=== PATIENT | male | born 1985 | race Caucasian/White ===

== ENCOUNTER 2017-05-26 10:56 | Emergency (ER) | payer OTHER ==
--- NOTE | 2017-05-26 11:23 | ED Physician Chart ---
ED Chief Complaint/HPI - Patient Information Date Seen:: 05/26/17 Time Seen:: 11:22 Chief Complaint:: LEFT WRIST PAIN AFTER FALL LAST PM History of Present Illness:: THIS 31 YEAR OLD LEFT HANDED MALE WAS TAKING OUT TRASH LAST EVENING WHEN HE TRIPPED AND FELL DUE TO A MISPLACED SKATE BOARD. PATIENT RATE PAIN SEVERITY 9/10 EARLIER THIS AM WHEN HE GOT UP. HE TOOK A 800 MG IBUPROFEN AND NOW THE PAIN IS MARKEDLY REDUCED AND ABOUT 2/10 SEVERITY. PAIN IS MADE WORSE BY DORSIFLEXION AND MOVEMENT. NO ASSOCIATED WEAKNESS OR NUMBNESS IN WRIST OR HAND. NO OTHER INJURIES. 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.) Endocrine: No polyuria, No polydipsia Psychiatric: Prior psych history, No depression, Anxiety, No suicidal ideation Hematopoietic: No bruising, No lymphadenopathy Allergic/Immuno: No urticaria, No angioedema Neurological: No syncope, No focal symptoms, No weakness, No paresthesia, No headache, No seizure, No dizziness, No confusion, No vertigo ED Past Medical History - Past Medical History Social History: Non Smoker (patient uses medical marijuana for treatment of anxiety.), Employed (as a general foreman.) Family Medical History - Family Member Mother History Unknown: Yes ED Physical Exam - Physical Examination General/Constitutional: Awake, Well-developed, well-nourished, Alert, GCS 15, Non-toxic appearing, Ambulatory Head: Atraumatic Eyes: Lids, conjuctiva normal, PERRL, EOMI Skin: Nl inspection, No skin lesions, No ecchymosis, Well hydrated, No lymphadenopathy ENMT: External ears, nose nl, Lips, teeth, gums nl, Oropharynx nl Neck: Nontender, Full ROM w/o pain, No JVD, No nuchal rigidity, No bruit, No mass, No stridor Respiratory: Nl effort/Exclusion, Clear to Auscultation, No Wheeze/Rhonchi/Rales Cardio Vascular: RRR, No murmur, gallop, rubs, NL S1 S2 Other Cardio Vascular comments:: Good pulses in all 4 extremities. ED Labs/Radiology/EKG Results - Lab Results Results: 3 VIEWS OF THE LEFT WRIST: NO FRACTURES, NO DISLOCATIONS, NO SOFT TISSUE SWELLING, NO FOREIGN BODIES. IMPRESSION NO ACUTE TRAUMATIC FINDINGS. ED Assessment - Assessment General Assessment: CASE SUMMARY: This 31-year-old left-handed male sustained an injury to his left wrist when he tripped over a skateboard while taking out the trash last evening. He awoke this morning he had severe pain in the wrist which improved after he took 800 mg of ibuprofen. Physical examination there was no deformity or significant swelling of the left wrist. Range of motion was limited with dorsal flexion due to pain. 3 views of the wrist were obtained with no fractures, dislocation or soft tissue swelling. Patient was placed in a Velcro wrist splint and advised to continue intermittent icing and elevation. He was further advised to continue using ibuprofen for wrist pain. He was advised to return to the emergency department if his symptoms worsened and to follow-up with his primary care physician if there was any residual pain in 2-3 weeks. MDM DDX LEFT WRIST INJURY: NOT CLOSED FRACTURE BASED ON EXAM AND RADIOLOGY FINDINGS. NO DISLOCATIONS BASED ON RADIOLOGY FINDINGS. NO RADIO OPAQUE FOREIGN BODIES BASED ON RADIOLOGY FINDINGS. ED Septic Shock - . Is Septic Shock (SBP<90, OR Lactate>4 mmol\L) present?: No ED Reassessment (Disposition) - Reassessment Reassessment Condition:: Improved - Diagnosis Diagnosis:: SPRAIN LEFT WRIST. ANXIETY DISORDER Return to the emergency department if her symptoms worsen. Follow-up with your regular physician if the wrist isn't improving in 2-3 weeks. - Aftercare/Follow up Instructions Aftercare/Follow-Up Instructions:: Counseled pt & family regarding lab results/ diagnosis & need follow up - Patient Disposition Discharge/Transfer:: Home ED Discharge Plan - Patient Disposition Instructions: Wrist Pain, [id number] Additional Instructions: DISCHARGE: Patient given medication reconciliation form and D/C instructions. Patient verbalized understanding. MD discussed with patient the results and treatment provided. Ambulatory with steady gait for discharge to home. Patient in stable condition, ID band removed. Patient educated on pain management. All belongings sent with patient. Accepting Physician: Deon Morris [Courtesy] - Forms: Work Release Form
--- NOTE | 2017-05-27 09:43 | Diagnostic Imaging Report ---
Left wrist 3 views Indication: Fall Comparison: none Findings: Sclerotic density most of the physeal scars of the distal radius and ulna are noted. Otherwise no evidence of acute fracture or significant focal soft tissue swelling. No dislocation. Impression: Sclerotic densities most likely physeal scars of the distal radius and ulna are noted. No evidence of an acute fracture. In the setting of trauma, if clinical symptoms persist and there is continued concern for an occult fracture, follow up exams in 5-7 days is recommended.
== END 2017-05-26 12:40 | disposition home or self-care (01) ==
LOC: ER 10:56
DX: S63.502A Unspecified sprain of left wrist, initial encounter (principal); F41.9 Anxiety disorder, unspecified; Z88.0 Allergy status to penicillin; W01.0XXA Fall on same level from slipping, tripping and stumbling without subsequent striking against object, initial encounter; Y93.51 Activity, roller skating (inline) and skateboarding; Y92.89 Other specified places as the place of occurrence of the external cause; Y99.8 Other external cause status
CPT/HCPCS: 73110-TC-LT; Z7502

== ENCOUNTER 2017-09-07 11:23 | Emergency (ER) | payer OTHER ==
--- NOTE | 2017-09-07 12:07 | ED Physician Chart ---
ED Chief Complaint/HPI - Patient Information Date Seen:: 09/07/17 Time Seen:: 12:02 Chief Complaint:: Lest chest pain History of Present Illness:: 32 yo male had sudden onset of chest pain while watching TV last night with radiation to left shoulder for a minute. The pain became fluctuating and lasted until this morning. The patient had sense of SOB. He was able to pinpoint the tender point at the anterior left chest. Allergies:: Allergies Allergy/AdvReac Type Severity Reaction Status Date / Time Penicillins [PCN] Allergy Verified 05/26/17 11:23 Vitals:: Vital Signs - 8 hr 09/07/17 11:45 Temp 98.2 F HR 111 RR 22 BP 196/112 O2 Sat % 99 ED Past Medical History - Past Medical History Past Medical History: No significant medical hx Social History: Smoker, Alcohol, Illicit Drug Use (marijuana) Surgical History: other (right forearm ORIF) Family Medical History - Family Member Mother History Unknown: Yes Age: 63 Ethnicity: Non- Living Status: Still Living Hx Family Cancer: No Hx Family Coronary Artery Disease: No Hx Family Congestive Heart Failure: No Hx Family Hypertension: Yes Hx Family Stroke: No Hx Family Diabetes: No Hx Family Seizures: No Hx Family Dementia: No Hx Family AIDS: No Hx Family HIV: No Hx Family COPD: No Hx Family Hepatitis: No Hx Family Psychiatric Problems: No Hx Family Tuberculosis: No ED Septic Shock - <6hrs of presentation: Vital Signs: Vital Signs - 8 hr 09/07/17 11:45 Temp 98.2 F HR 111 RR 22 BP 196/112 O2 Sat % 99
[2017-09-07 12:24] LABS: % BASOPHILS 0.4 % (0.0-2.0); % EOSINOPHILS 0.8 % (0.0-5.0); % LYMPHOCYTES 23.7 % (20.0-50.0); % NEUTROPHILS 68.1 % (40.0-80.0); EOSINOPHILE ABSOLUTE 0.1 Th/cmm (0.1-0.4); HEMATOCRIT 48.7 % (41.0-60); HEMOGLOBIN 16.5 gm/dL (12-16); LYMPHOCYTE ABSOLUTE 1.6 Th/cmm (1.5-3.0); MEAN CELL VOLUME 95.3 fl (80-99); MEAN CORPUSCULAR HEMOGLOBIN 32.3 pg (26.0-30.0); MEAN CORPUSCULAR HGB CONC 33.9 pg (28.0-36.0); MEAN PLATELET VOLUME 8.7 fl; MONOCYTE ABSOLUTE 0.5 Th/cmm (0.3-1.0); NEUTROPHILE ABSOLUTE 4.6 Th/cmm (1.8-8.0); PLATELET COUNT 247 Th/cmm (150-400); RED BLOOD COUNT 5.11 Mil/cmm (4.30-5.70); WHITE BLOOD COUNT 6.8 Th/cmm (4.8-10.8)
--- NOTE | 2017-09-07 13:06 | Diagnostic Imaging Report ---
CHEST X-RAY: AP view INDICATION: Left-sided chest pain COMPARISON: None FINDINGS: There is no focal consolidation or pleural effusions The heart is normal in size. The osseous structures demonstrate no acute abnormalities. There may have been old trauma to the left clavicle. IMPRESSION: No focal acute pulmonary process.
[2017-09-07 13:09] LABS: ALB/GLOB RATIO 2.1 (1.0-1.8); ALBUMIN 4.8 gm/dL (4.2-5.5); ALKALINE PHOSPHATASE 47 U/L (34-104); ANION GAP 14.5 (7.0-16.0); BILIRUBIN,TOTAL 0.6 mg/dL (0.3-1.0); BUN - UREA NITROGEN 13 mg/dL (7-25); CALCIUM SERUM 9.7 mg/dL (8.6-10.3); CARBON DIOXIDE 22.9 mEq/L (21.0-31.0); CHLORIDE 102 mEq/L (98-107); CREATININE - SERUM 0.7 mg/dL (0.7-1.3); GFR AFRICAN-AMERICAN > 60.0 ml/min (>90); GFR NON AFRICAN-AMERICAN > 60.0 ml/min; GLUCOSE 110 mg/dL (70-105); POTASSIUM SERUM 3.4 mEq/L (3.5-5.1); SGOT 21 U/L (13-39); SGPT/ALT 17 U/L (7-52); SODIUM SERUM 136 mEq/L (136-145); TOTAL PROTEIN,SERUM 7.1 gm/dL (6.0-8.3)
[2017-09-07 13:10] LABS: CHOLESTEROL 271 mg/dL (<200); HDL -HIGH DENSITY LIPOPROTEIN 93 mg/dL (23-92); TRIGLYCERIDES 187 mg/dL (<150)
== END 2017-09-07 13:55 | disposition home or self-care (01) ==
LOC: ER 11:23
DX: R07.89 Other chest pain (principal); F17.200 Nicotine dependence, unspecified, uncomplicated; F12.10 Cannabis abuse, uncomplicated
CPT/HCPCS: 36415-UA; 71010-TC; 80053-TC; 80061-TC; 82550-TC; 83880-TC; 84443-TC; 84484-TC; 85025-TC; 93005

== ENCOUNTER 2018-08-23 08:29 | Emergency (ER) | payer SELFPAY ==
--- NOTE | 2018-08-23 09:11 | ED Physician Chart ---
ED Chief Complaint/HPI - Patient Information Date Seen:: 08/23/18 Time Seen:: 08:40 Chief Complaint:: Right Thigh Redness History of Present Illness:: onset x 3 days of right thigh redness, swelling, and erythema after an insect bite 3 days AIRPLANE PILOT CROP DUSTING; pt denies trauma, LOC, ALOC, AMS, H/As, S/T, neck pain, cough, C/P, SOB, Abd. Pain, A/N/V/D/C, weakness, dizziness, paresthesias, vertigo, bleeding, fever, chills, or urinary s/s; pt's last tetanus shot: < 5 years; UTD Allergies:: Allergies Allergy/AdvReac Type Severity Reaction Status Date / Time Penicillins [PCN] Allergy Verified 05/26/17 11:23 Vitals:: Vital Signs - 8 hr 08/23/18 08:39 Temp 98.8 F HR 107 RR 17 BP 130/83 O2 Sat % 96 Historian:: Patient Review:: Nurse's Note Reviewed ED Review of Systems - Review of Systems General/Constitutional: No fever, No chills, No weight loss, No weakness, No diaphoresis, No edema, No loss of appetite Skin: Skin lesions, No rash, No bruising Head: No headache, No light-headedness Eyes: No loss of vision, No pain, No diplopia ENT: No earache, No nasal drainage, No sore throat, No tinnitus Neck: No neck pain, No swelling, No thyromegaly, No stiffness, No mass noted Cardio Vascular: Chest pain, No palpitations, No PND, No orthopnea, No edema Pulmonary: No SOB, No cough, No sputum, No wheezing GI: No nausea, No vomiting, No diarrhea, No pain, No melena, No hematochezia, No constipation, No hematemesis G/U: No dysuria, No frequency, No hematuria, No nacturia Musculoskeletal: No bone or joint pain, No back pain, Muscle pain Endocrine: No polyuria, No polydipsia Psychiatric: No prior psych history, No depression, No anxiety, No suicidal ideation, No homicidal ideation, No auditory hallucination, No visual hallucination Hematopoietic: No bruising, No lymphadenopathy Allergic/Immuno: No urticaria, No angioedema Neurological: No syncope, No focal symptoms, No weakness, No paresthesia, No headache, No seizure, No dizziness, No confusion, No vertigo ED Past Medical History - Past Medical History Obtainable: Yes Past Medical History: No significant medical hx Family History: HTN Social History: Smoker, Alcohol, No Drug Use, Single Surgical History: None Psychiatricy History: None Medication: Reviewed Family Medical History - Family Member Mother History Unknown: Yes Ethnicity: Non- Living Status: Still Living Hx Family Cancer: No Hx Family Coronary Artery Disease: No Hx Family Congestive Heart Failure: No Hx Family Hypertension: Yes Hx Family Stroke: No Hx Family Diabetes: No Hx Family Seizures: No Hx Family Dementia: No Hx Family AIDS: No Hx Family HIV: No Hx Family COPD: No Hx Family Hepatitis: No Hx Family Psychiatric Problems: No Hx Family Tuberculosis: No ED Physical Exam - Physical Examination General/Constitutional: Awake, Well-developed, well-nourished, Alert, No distress, GCS 15, Non-toxic appearing, Ambulatory Head: Atraumatic Eyes: Lids, conjuctiva normal, PERRL, EOMI Skin: Nl inspection, No rash, No skin lesions, No ecchymosis, Well hydrated, No lymphadenopathy Other Skin comments:: + Right Thigh Localized Cellulitis/Abscess at the proximal medial region around an insect bite PW; no FBs; good motor, tendon, and sensory functions; no septic joints; no joint tenderness; no loss of ROMs; good NV functions ENMT: External ears, nose nl, TM canals nl, Nasal exam nl, Lips, teeth, gums nl , Oropharynx nl, Tonsils nl Neck: Nontender, Full ROM w/o pain, No JVD, No nuchal rigidity, No bruit, No mass, No stridor Other Neck comments:: supple; no meningeal signs; no cervical tenderness; no bruits Respiratory: Nl effort/Exclusion, Clear to Auscultation, No Wheeze/Rhonchi/Rales Cardio Vascular: RRR, No murmur, gallop, rubs, NL S1 S2, Carotid/Femoral/Distal pulses equal bilaterally GI: No tenderness/rebounding/guarding, No organomegaly, No hernia, Normal BS's, Nondistended, No mass/bruits, No McBurney tenderness, Rectum exam nl Other GI comments:: no pulsatile masses : No CVA tenderness Extremities: No tenderness or effusion, Full ROM, normal strength in all extremities, No edema, Normal digits & nails Neuro/Psych: Alert/oriented, DTR's symmetric, Normal sensory exam, Normal motor strength, Judgement/insight normal, Mood normal, Normal gait, No focal deficits Other Neuro/Psych comments:: no focal signs Misc: Normal back, No paraspinal tenderness ED Septic Shock - . Is Septic Shock (SBP<90, OR Lactate>4 mmol\L) present?: No - <6hrs of presentation: Vital Signs: Vital Signs - 8 hr 08/23/18 08:39 Temp 98.8 F HR 107 RR 17 BP 130/83 O2 Sat % 96 ED Reassessment (Disposition) - Reassessment Reassessment:: pt is asymptomatic upon discharge Reassessment Condition:: Improved - Diagnosis Diagnosis:: Dx: Puncture Wound; Right Thigh Localized Cellulitis/Abscess; Insect Bite Wound ; Insect Bite - Aftercare/Follow up Instructions Aftercare/Follow-Up Instructions:: Counseled pt regarding lab results/diagnosis & need follow up, Refer to Discharge Instructions, Counseled pt & family regarding lab results/diagnosis & need follow up Medication Prescribed:: Rx: Azithromycin/ Z-Pack (#6): Take as prescribed; Neosporin Ointment bid x 14 days; Warm Compresses/Heating Pads to affected areas; Skin Care Instructions - Patient Disposition Discharge/Transfer:: Home Condition at Disposition:: Stable, Improved (RTER prn if existing s/s reoccur and/or get worse and/or any other new s/s occur; ACIs given for all above Dx; Refer to Vascular Surgeon/Depositing Machine Operator/Mud Jack Nozzle Worker WILDER; F/U with PMD in one day or prn; RTER prn if concerned)
== END 2018-08-23 08:55 | disposition home or self-care (01) ==
LOC: ER 08:29
DX: S71.131A Puncture wound without foreign body, right thigh, initial encounter (principal); L03.115 Cellulitis of right lower limb; F17.200 Nicotine dependence, unspecified, uncomplicated; Z88.0 Allergy status to penicillin; W57.XXXA Bitten or stung by nonvenomous insect and other nonvenomous arthropods, initial encounter; Y93.89 Activity, other specified; Y92.89 Other specified places as the place of occurrence of the external cause; Y99.8 Other external cause status
CPT/HCPCS: Z7502